=== PATIENT | female | born 1995 | race Caucasian/White ===

== ENCOUNTER 2016-05-15 21:42 | Emergency (ER) | payer BC ==
[2016-05-15] MEDS ORDERED: IBUPROFEN 600 MG TABLET PO STA (22:22)
[2016-05-15] MEDS ORDERED: traMADol 50 MG TABLET PO STA (22:23)
[2016-05-15] MEDS ORDERED: traMADol 50 MG TABLET PO ONE (22:32)
[2016-05-15] MEDS ORDERED: IBUPROFEN 600 MG TABLET PO ONE (22:32)
== END 2016-05-15 23:12 | disposition home or self-care (01) ==
DX: S63.617A Unspecified sprain of left little finger, initial encounter (principal); X50.0XXA Overexertion from strenuous movement or load, initial encounter
CPT/HCPCS: 29130; 73140; 99282; 99283; A9270

== ENCOUNTER 2016-06-10 13:59 | Emergency (ER) | payer BC | END 2016-06-10 17:18 | disposition home or self-care (01) | DX: N83.201 Unspecified ovarian cyst, right side (principal); N93.9 Abnormal uterine and vaginal bleeding, unspecified ==

== ENCOUNTER 2017-01-27 08:00 | Outpatient (CLI) | payer BC | END 2017-01-27 08:01 | disposition home or self-care (01) | LOC: LAB.R 08:00 | PROVIDERS: ATTEND Registered Nurse | DX: R10.2 Pelvic and perineal pain (principal) | CPT/HCPCS: 87491; 87591 ==

== ENCOUNTER 2017-02-05 17:09 | Outpatient (CLI) | payer BC ==
--- NOTE | 2017-02-06 09:40 | Ultrasound Report ---
PELVIC ULTRASOUND: 02/05/2017 CLINICAL INDICATION: Pain. COMPARISON: 06/10/2016 TECHNIQUE: Transabdominal pelvic ultrasound performed for global evaluation. Transvaginal pelvic ul trasound performed for detailed evaluation. Real-time scanning performed and static images obtained. FINDINGS: The uterus is anteverted, measuring 9.2 x 4.8 x 3.4 cm. The endometrial echo complex jose luis ures 4 mm. An IUD is noted in the endometrial canal. No focal myometrial lesion is seen. The ovari es are normal, with the right measuring 3.1 x 2.9 x 2.4 cm and the left measuring 2.9 x 2.0 x 1.7 cm. Previously seen left ovarian hemorrhagic cyst has resolved. No free fluid is present. IMPRESSION: IUD IN PLACE. NORMAL PELVIC ULTRASOUND. JOB #: [id number] EXT JOB #:[id number]
== END 2017-02-05 17:10 | disposition home or self-care (01) ==
LOC: DI 17:09
PROVIDERS: ATTEND Registered Nurse
DX: R10.2 Pelvic and perineal pain (principal); Z97.5 Presence of (intrauterine) contraceptive device
CPT/HCPCS: 76830; 76856

== ENCOUNTER 2017-05-06 14:54 | Outpatient (CLI) | payer OTHER ==
[2017-05-06 15:47] LABS: BILIRUBIN,URINE NEGATIVE (NEGATIVE); PH,URINE 6.5 PH (5.0-7.5)
[2017-05-06 15:50] LABS: CALCIUM 9.9 mg/dL (8.5-10.3); CREATININE 0.8 mg/dL (0.4-1.0); POTASSIUM 3.6 mmol/L (3.5-5.0)
[2017-05-06 16:47] LABS: BASOPHILS % (AUTO) 0.2 %; EOSINOPHILS # (AUTO) 0.2 10^3/uL (0.0-0.7); EOSINOPHILS % (AUTO) 2.6 %; HCT - HEMATOCRIT 44.4 % (37.0-47.0); HGB - HEMOGLOBIN 15.2 g/dL (12.0-16.0); LYMPHOCYTES % (AUTO) 36.8 %; MEAN CORPUSCULAR HEMOGLOBIN 29.7 pg (27.0-31.0); MEAN CORPUSCULAR HGB CONC 34.1 g/dL (32.0-36.0); MEAN PLATELET VOLUME 8.7 fL (7.9-10.8); MONOCYTES # (AUTO) 0.7 10^3/uL (0.0-1.0); MONOCYTES % (AUTO) 8.4 %; NEUTROPHILS # (AUTO) 4.2 10^3/uL (1.5-6.6); NUCLEATED RED BLOOD CELLS AUTO 0.1 /100WBC; RED BLOOD COUNT 5.11 10^6/uL (4.20-5.40); RED CELL DISTRIBUTION WIDTH 12.8 % (12.0-15.0)
== END 2017-05-06 14:55 | disposition home or self-care (01) ==
LOC: LAB 14:54
PROVIDERS: ATTEND Obstetrics & Gynecology
DX: R10.2 Pelvic and perineal pain (principal); N83.201 Unspecified ovarian cyst, right side
CPT/HCPCS: 36415; 80048; 81003; 84702; 85025

== ENCOUNTER 2017-05-07 07:42 | Day surgery (SDC) | payer BC, OTHER ==
[2017-05-07 08:01] LABS: HCG UR QUAL NEGATIVE
[2017-05-07] MEDS ORDERED: LACTATED RINGERS 1,000 ML IV ONE ×2 (08:15→11:00)
--- NOTE | 2017-05-07 09:12 | HISTORY & PHYSICAL EXAMINATION ---
DATE OF SERVICE: 05/06/2017 Physician: Louis Mar MD DATE OF SURGERY: 05/07/2017 CHIEF COMPLAINT 1. Persistent right lower quadrant pain. 2. Ovarian cyst in right adnexa. HISTORY OF PRESENT ILLNESS: Patient has longstanding chronic abdominal and pelvic pain predominantly on the right side. She has failed conservative therapy to include nonsteroidal antiinflammatories, OCPs, and Mirena. Patient still has Mirena in place. Three years ago she underwent laparoscopy that discovered appendicitis. Pathology and operative report not available. There is no obvious musculoskeletal injury or pathology to explain the right lower quadrant pain that radiates to the right buttock and inner thigh. Patient experiences severe dyspareunia. Despite several years of unprotected intercourse, she has not achieved . PAST MEDICAL HISTORY: No STD history. Normal Pap smears and normal GC chlamydia cultures. No chronic cardiovascular disease history. Occasional migraines. He has had Gardasil vaccination series. PAST SURGICAL HISTORY: Appendectomy in November 2014. ALLERGIES: Hydrocortisone. MEDICATIONS: Firocette, occasional Motrin. FAMILY HISTORY: Cervical cancer, diabetes, CAD, and endometriosis. SOCIAL HISTORY: [employer] student, stable monogamous relationship; a nonsmoker, drinks coffee; no drug or alcohol use. PHYSICAL EXAMINATION GENERAL: Well groomed, pleasant demeanor. VITAL SIGNS: Posted. CONSTITUTIONAL: No distress; good communication skills. Well nourished, not obese. HEENT: Supple neck, no thyromegaly. Good dentition. LUNGS/PULMONARY: Clear to auscultation. CARDIAC: Regular. No murmur. No gallop. ABDOMEN: Nondistended. No hepatosplenomegaly. Laparoscopy incisions present. Right lower quadrant tenderness spreading to the midline and suprapubic region. Bladder tenderness noted. Q-tip test positive right lower quadrant. LYMPHATICS: Negative. MUSCULOSKELETAL: Negative. SKIN: No rash. NEUROLOGIC: Grossly intact. PSYCHOLOGIC: No apparent anxiety, depression. Oriented, pleasant demeanor. BREASTS: Deferred, patient request. PELVIC EXAM: Bartholin glands normal. No skin lesions. VULVA: No blood or discharge. CERVIX: No gerry cervical motion tenderness. Clear secretions. IUD string in place. UTERUS: Retroverted, retroflexed tender. ADNEXA: No masses. Normal-sized left ovary; right ovary tender, somewhat fixed , possibly adhesions. PELVIC MUSCULATURE: Levator plate. Good Kegel squeeze. No spasm noted. STUDIES: Preop labs pending. ASSESSMENT: Patient has chronic right lower quadrant and pelvic pain with known ovarian cyst and possible endometriosis. Diagnostic laparoscopy is indicated, since this has failed conservative measures. Due to bladder plane, cystoscopy is also recommended. PLAN: Patient had an informed consent session and reviewed of all symptoms including surgical objectives. Risks and benefits were discussed as well as alternatives. Patient finds that her pain is too troublesome to not try to resolve in the near future. PLANNED PROCEDURES: Diagnostic laparoscopy with possible ovarian cystectomy and /or ablation of endometriosis; cystoscopy. TD: 05/06/2017 20:07 ELENA
[2017-05-07] MEDS ORDERED: ceFAZolin 1 GM VIAL IV ONE (09:27)
[2017-05-07] MEDS ORDERED: DEXAMETHASONE 4 MG/ML VIAL IVP ONE (09:27)
[2017-05-07] MEDS ORDERED: MIDAZOLAM 2 MG/2 ML VIAL IVP ONE (09:27)
[2017-05-07] MEDS ORDERED: fentaNYL 100 MCG/2 ML VIAL IVP ONE (09:27)
[2017-05-07] MEDS ORDERED: LIDOCAINE-MPF 2% 5 ML VIAL IM ONE (09:27)
[2017-05-07] MEDS ORDERED: ONDANSETRON 4 MG/2 ML VIAL IVP ONE (09:27)
[2017-05-07] MEDS ORDERED: ROCURONIUM 50 MG/5 ML VIAL IVP ONE (09:27)
[2017-05-07] MEDS ORDERED: KETOROLAC 30 MG/ML VIAL IVP ONE (09:27)
[2017-05-07] MEDS ORDERED: PROPOFOL 200 MG/20 ML VIAL IVP ONE (09:27)
[2017-05-07] MEDS ORDERED: BUPIVACAINE 0.25%-EPI 1:200000 PF 30 ML VIAL SUBQ ONE (09:47)
[2017-05-07] MEDS ORDERED: METHYLENE BLUE 100 MG/10 ML VIAL IR ONE (09:50)
[2017-05-07] MEDS ORDERED: ONDANSETRON 4 MG/2 ML VIAL ONE (10:55)
[2017-05-07] MEDS: HYDROmorphone 1 MG/ML SYRINGE ONE ×4 (10:55→11:25)
--- NOTE | 2017-05-07 11:26 | OPERATIVE REPORT ---
Operative Report - General Procedure Date: 05/07/17 Planned Procedure: Diagnostic laparoscopy and cystoscopy Pre-Op Diagnosis: Chronic pelvic pain failing medical treatment; chronic right lower quadrant Procedure Performed: Diagnostic laparoscopy, excision of right uterosacral ligament endometriosis, Chromopertubation,Cystoscopy, replacement of IUD, endometrial sampling Post Op Diagnosis: Endometriosis stage I, cystitis probable interstitial cystitis - Procedure Note Primary Surgeon: Louis Mar MD Secondary Surgeon: Louis Camacho MD Anesthesia Provider: Sari Hogan, certified nurse drafter automotive design layout Anesthesia Technique: General ET tube Pathology: Endometrial sampling, endometriosis specimen, peritoneal fluid IV Fluids (mL): 1,200 Estimated Blood Loss (mL): 5 Urine Output (mL): 500 Drain/Tube Type: Other (Shen) Complications: None - Other Other Information/Narrative: Operative note dictated. IUD inserted [facility]
[2017-05-07] MEDS ORDERED: HYDROcod/ACETAM 5/325 MG TABLET ONE (11:59)
[2017-05-07] MEDS ORDERED: SCOPOLAMINE PATCH TOP ONE (13:50)
[2017-05-07 14:42] VITALS: BP 122/68
--- NOTE | 2017-05-07 16:49 | OPERATIVE REPORT ---
DATE OF SERVICE: 05/07/2017 Physician: Louis Mar MD PREOPERATIVE DIAGNOSIS: Chronic pelvic pain, right lower quadrant pain, bladder tenderness, chronic pain failing medical treatment. DIAGNOSES 1. Endometriosis, right uterosacral ligament. 2. Cystitis, possible interstitial cystitis. PROCEDURES 1. Diagnostic laparoscopy. 2. Laparoscopic excision of endometriosis on right uterosacral ligament ( approximately 3.5 x 2.5 cm). 3. Cystoscopy. 4. Replacement of intrauterine device (IUD). 5. Endometrial sampling. SURGEON: Louis Mar MD, FACOG, FICS [employer] OBSERVER: Louis Camacho MD, FACOG ANESTHESIA PROVIDER: Sari Hogan, certified nurse road mixer operator. ANESTHESIA TYPE: General with ET tube. COMPLICATIONS: None. BLOOD LOSS: Minimal, less than 50 mL SPECIMENS 1. Aspiration of serosanguineous fluid in the peritoneum, desire search for hemosiderin laden macrophages. 2. Excised right sacral ligament peritoneum. 3. Endometrial sampling. DRAINS: Shen to gravity with clear urine. FINDINGS 1. Examination of the external genitalia finds no lesions, Bartholin glands normal. 2. Vagina shows no blood or discharge. 3. Cervix: No cervicitis. IUD string present. 4. Uterus: Laparoscopic examination of the uterus finds it to be of normal contour and size without any suggestion of endometriosis. Both tubes are fluffy and open with free flow of dye. The ovaries are normal in appearance with follicular activity present. There is no pelvic congestion. The cul-de-sac was examined thoroughly, as well as the ovarian fossae and the anterior compartment. On the right uterosacral ligament, there was a 3.5 x 2.5 patch of vesicular change that was suggestive of endometriosis. This was excised. 5. Liver edge appears to be normal. Gallbladder not visualized. Appendix surgically absent. Cystoscopy finds dilated vessels in the trigone, and at one point an area that appeared to be a Hunner ulcer. After distention and deflation, glomerular change was found in the midline and trigone area. Ureters were functional on both sides. At the bladder neck, there was metaplasia with mild inflammation. TECHNIQUE: Prior to surgery, the mechanics, risks, benefits, and alternatives were reviewed with the patient. Informed consent paperwork was complete. All questions answered. PROCEDURE IN DETAIL: Patient was placed on the OR table in the supine position. She was uneventfully induced and intubated. She was moved to the low dorsal lithotomy position with Billy mobile stirrups. She was prepped and draped in a customary sterile fashion. Shen catheter was placed. Timeout briefing was done per protocol. Clamshell speculum was placed into the vagina. Single-tooth tenaculum was used to grasp the cervix. HUMI catheter was inserted, but it caused the IUD to be expelled, which was removed in total. Small curetting was done of the endometrial surface to ensure there was no endometritis. Attention was turned to the laparoscopic phase. A small puncture was placed under the umbilical skin fold. A 5 mm Visiport was inserted under direct visualization. In turn, 5 mm right and left lower abdominal operating ports were inserted under direct visualization. Prior to insertion, small aliquots of Marcaine were placed for postoperative comfort. Abdomen was insufflated with CO2 gas at 12 mm. The abdomen was assessed and photographed. Patient was placed in deep Trendelenburg position and the colon grasped and moved away from the right sacral ligament. Using monopolar needle, the area of endometriosis was inscribed and then removed in total. There was a small bleeding vessel at the base of the excision, which was stanched with monopolar cautery. Operative site was observed and found to be hemostatically secure. At this point, the abdominal phase/laparoscopic phase was complete. Abdominal cavity was lavaged with 1000 mL of warm normal saline with 10 mL of Marcaine 0.25% added. While the patient was still in Trendelenburg, all gas was vented and trocars removed. The skin wounds were closed with subcuticular stitches of 4-0 Monocryl and dressed with Dermabond. Attention was turned to the final vaginal phase and cystoscopy. A 70-degree cystoscope was prepared, then uneventfully inserted through the urethra into the bladder cavity. Warm, normal saline was used to lavage the bladder but later changed to distilled water for better visualization. The bladder was examined in a systematic fashion. Vascular changes consistent with an interstitial cystitis was found. At one point a Hunner ulcer was located after distention and photographed. Unfortunately, this photograph was lost in the memory stick. The bladder was then drained and Shen replaced. Open speculum was used for IUD replacement. The uterus was sounded to 8.5 cm. A single-tooth tenaculum was placed on the anterior cervical lip. An IUD application tool was inserted into the uterus and the IUD expelled. Strings were trimmed to 2 cm. At this point, the procedure was complete. All instruments were removed. The patient was uneventfully awakened from general anesthesia and taken to the recovery room in stable condition. Once awake and alert, the intraoperative photos were reviewed with her, along with the working diagnosis. Call-back instructions and followup appointment were given. DISCHARGE MEDICATIONS 1. Motrin 600 p.o. q.4 hours for 7 days. 2. [place] 325/5 at 1-2 tabs q.4 hours p.r.n. breakthrough pain. TD: 05/07/2017 13:55 ELENA
== END 2017-05-07 07:43 | disposition home or self-care (01) ==
LOC: SDS 07:42
PROVIDERS: ATTEND Obstetrics & Gynecology
PROC: 0TJB8ZZ Inspection of Bladder, Via Natural or Artificial Opening Endoscopic (ICD-10-PCS; 2017-05-07)
PROC: 0U2DXHZ Change Contraceptive Device in Uterus and Cervix, External Approach (ICD-10-PCS; 2017-05-07)
PROC: 0MB Bursae and Ligaments, Excision (ICD-10-PCS; principal; 2017-05-07 08:45)
DX: N80.3 Endometriosis of pelvic peritoneum (principal); Z30.433 Encounter for removal and reinsertion of intrauterine contraceptive device; N30.10 Interstitial cystitis (chronic) without hematuria
CPT/HCPCS: 52000; 58300; 58662; 81025; A9270; J1170; J3490; J7120

== ENCOUNTER 2017-10-30 19:55 | Outpatient (CLI) | payer OTHER ==
--- NOTE | 2017-10-31 13:02 | Ultrasound Report ---
Procedure Date: 10/30/2017 Accession Number: [id number] / [id number] Procedure: US - Retroperitoneal CPT Code: FULL RESULT: EXAM: Retroperitoneal DATE: 10/30/2017 8:32 PM CLINICAL HISTORY: ORGAN DONATION CANDIDATE COMPARISON: None. TECHNIQUE: Real-time scanning was performed with static images obtained. FINDINGS: Right Kidney: 10.7 x 5 x 7.5 cm. Normal echotexture with no stones, contour-deforming masses, or hydronephrosis. Left Kidney: 10.7 x 5.3 x 5.1 cm. Normal echotexture with no stones, contour-deforming masses, or hydronephrosis.] Bladder: Bilateral jets seen. The prevoid bladder volume was 158 cc. The postvoid bladder volume was 8.5 cc. IMPRESSION: Normal renal ultrasound. [facility]
== END 2017-10-30 19:56 | disposition home or self-care (01) ==
LOC: DI 19:55
PROVIDERS: ATTEND Student in an Organized Health Care Education/Training Program
DX: Z00.5 Encounter for examination of potential donor of organ and tissue (principal)
CPT/HCPCS: 76770